=== PATIENT | male | born 1945 | race Caucasian/White ===

== ENCOUNTER 2020-08-12 05:49 | Emergency (ER) | payer MEDICARE ==
[~2020-08-12] VITALS: Ht 165.1 cm; Wt 57.3 kg
[2020-08-12 06:11] VITALS: BP 146/85
[2020-08-12] MEDS ORDERED: HYDR25CA PO (06:17)
--- NOTE | 2020-08-12 06:17 | PHYS DOC ---
Past History Past Medical History: Other (Basal cell carcinoma) Adult General Chief Complaint Chief Complaint: SKIN RASH/ABSCESS HPI HPI Patient is a 75-year-old male who presents for skin problems. Patient has known history of basal cell carcinoma and currently sees unit control clerk in [place]. He was recently prescribed 5% fluorouracil for his superficial skin cancer and has been taking this twice daily as directed for greater than 3 weeks. Nonetheless, patient reports blistering and severe itching on his face where he has been applying said medication. This has been unbearable for past 72 hours, patient has been taking 25 mg Benadryl daily without significant relief in symptoms. He has tried contacting the dermatology office without success. He is here today for ongoing itching and irritation. Denies eye or oral involvement, no fever, no potential airway compromise noted Review of Systems Review of Systems Fourteen body systems of review of systems have been reviewed. See HPI for pertinent positives and negative responses, other dow all other systems are negative, non-pertinent or non-contributory Physical Exam Physical Exam Constitutional: Well developed, well nourished, no acute distress, non-toxic appearance. HENT: Normocephalic, atraumatic, bilateral external ears normal, oropharynx moist, no oral exudates, nose normal. Eyes: PERRLA, EOMI, conjunctiva normal, no discharge. Neck: Normal range of motion, no tenderness, supple, no stridor. Cardiovascular: Heart rate regular, sinus rhythm, no murmurs rubs or gallops Lungs & Thorax: Bilateral breath sounds clear to auscultation Abdomen: Bowel sounds normal, soft, no tenderness, no masses, no pulsatile masses. Nonsurgical abdomen, no peritoneal signs Skin: Warm, dry. Entire face showing local inflammatory reaction with mild blistering and excessive dryness consistent with irritant contact dermatitis classic for excessive inflammatory reaction to fluorouracil cream Back: No tenderness, no CVA tenderness. Extremities: No tenderness, no cyanosis, no clubbing, ROM intact, no edema. Neurologic: Alert and oriented X 3, grossly normal motor & sensory function, no focal deficits noted. Psychologic: Affect normal, judgement normal, anxious mood Current Patient Data Vital Signs Vital Signs Date Time Temp Pulse Resp B/P (MAP) Pulse Ox O2 Delivery O2 Flow Rate FiO2 08/12/20 06:11 97.0 70 18 146/85 (105) 100 Room Air EKG EKG [] Radiology/Procedures Radiology/Procedures [] Heart Score Risk Factors: Risk Factors: DM, Current or recent (<one month) smoker, HTN, HLP, family history of CAD, obesity. Risk Scores: Risk Factors: DM, Current or recent (<one month) smoker, HTN, HLP, family history of CAD, obesity. Course & Med Decision Making Course & Med Decision Making ABCs unremarkable, hemodynamically stable and well-appearing, nontoxic History and physical exam consistent with excessive inflammatory reaction to f luorouracil cream without concern for airway involvement or other concerning signs or symptoms indicating further ER work-up and/or admission Supportive care advised. I prescribed Vistaril because it is less sedating for as needed use for severe itching. I advised patient to use Aquaphor on face daily for moisturizing relief. I advised him to stay out of the sun due to phototoxicity potential while being on fluorouracil I advised patient to temporarily stop daily twice daily treatment of fluorouracil cream until he has discussed case with his unit control clerk. He will continue to call daily to discuss his case with them and discuss ongoing need for fluorouracil treatment versus other management Strict return precautions were discussed with good understanding by patient, all questions and concerns addressed prior to ER departure in stable condition Dragon Disclaimer Dragon Disclaimer This electronic medical record was generated, in whole or in part, using a voice recognition dictation system. Departure Departure: Impression: Primary Impression: Skin problem Additional Impression: On 5-fluorouracil (5-FU) therapy Disposition: 01 DC HOME SELF CARE/HOMELESS Condition: STABLE Referrals: RONALD HERNANDEZ MD (PCP) Patient Instructions: Fluorouracil, 5-FU skin cream or solution Additional Instructions: As discussed prior to ER departure, please use prescribed Vistaril for as needed itching in addition to Aquaphor cream to topically moisturize your irritated skin Your skin reaction is classic for medication reaction to 5% fluorouracil medication you have been prescribed As discussed, please call your unit control clerk SCOTTIE to determine ongoing need for this medication, to discuss need for reevaluation in upcoming 72 hours, and need for further medical intervention and/or medication changes Please see the information below regarding your 5% fluorouracil medication: After you have been instructed to stop using the fluorouracil cream, you may be prescribed a specific moisturiser or mild topical steroid< to help to heal the treated area. If you have been given no specific instructions, apply plain white petrolatum thinly to raw and crusted areas at bedtime. Stop the petrolatum when the crusts and scabs have healed. When treatment is stopped the skin heals rapidly. It takes two to four weeks for healthy new skin to replace the sun-damaged skin destroyed by the fluorouracil cream. After healing, the treated areas are often redder than normal and may feel more sensitive; this redness and sensitivity will gradually fade over a few weeks. Occasionally it persists for several months. Persistent or recurrent actinic keratoses can be treated with a further course of fluorouracil cream, imiquimod cream or by cryotherapy. However, it is important to ask your unit control clerk if this is appropriate because skin cancers can look very similar and may need surgery or other procedures. Complications of treatment with fluorouracil cream The action of fluorouracil cream means that some degree of itch, pain, erosions, crusting, dermatitis and other inflammatory reactions are expected during treatment. The following complications may occasionally occur during fluorouracil cream treatment. Excessive local inflammatory reaction may cause ulceration, blistering and local swelling. Phototoxic reactions develop on treated areas exposed to sunlight or another source of ultraviolet radiation. Hypersensitivity reactions are a particular risk for patients with dihydropyrimidine dehydrogenase enzyme deficiency, who may also develop systemic toxicity. Systemic symptoms may include fever, nausea, diarrhoea, headache and mouth ulcers (stomatitis). Blood tests may show leukocytosis (raised white cell count) or leukopenia (reduced white cell count). Irritant contact dermatitis or allergic contact dermatitis may affect some or all treated areas, including skin that is not sun damaged. The cause can be the 5-FU itself, a preservative (eg parabens) or an excipient in the cream (stearyl alcohol, propylene glycol). Secondary infection (impetiginisation) can occur due to bacteria penetrating eroded skin. Scripts Hydroxyzine Pamoate (VISTARIL) 25 Mg Capsule 1 CAP PO BID for ITCHING, #30 CAP 1 Refill Prov: MICHAEL MONGE DO 08/12/20 Problem Qualifiers MICHAEL MONGE DO Aug 12, 2020 06:17
== END 2020-08-12 06:25 | disposition home or self-care (01) ==
LOC: ER 05:49
DX: L98.8 Other specified disorders of the skin and subcutaneous tissue (principal); L29.9 Pruritus, unspecified; Z85.828 Personal history of other malignant neoplasm of skin
CPT/HCPCS: 99283